=== PATIENT | female | born 1965 | race Caucasian/White ===

== ENCOUNTER → 2020-11-06 | Outpatient (CLI) | payer BC ==
[~2020-11-06] MED LIST: GADOBENATE DIMEGLUMINE 1 ML IV ONE; SODIUM CHLORIDE 0.9% 50ML 50 ML ONE
== END ==
LOC: MRI 09:23
PROVIDERS: ATTEND Internal Medicine Critical Care Medicine
DX: G47.411 Narcolepsy with cataplexy (principal); G47.19 Other hypersomnia; G47.419 Narcolepsy without cataplexy; G47.33 Obstructive sleep apnea (adult) (pediatric); G47.63 Sleep related bruxism; R44.3 Hallucinations, unspecified; D49.7 Neoplasm of unspecified behavior of endocrine glands and other parts of nervous system
CPT/HCPCS: 70553

== ENCOUNTER → 2021-01-18 | Outpatient (CLI) | payer BC | LOC: SLEEP 19:43 | PROVIDERS: ATTEND Internal Medicine Critical Care Medicine | DX: G47.411 Narcolepsy with cataplexy (principal); G47.19 Other hypersomnia; G47.33 Obstructive sleep apnea (adult) (pediatric); G47.63 Sleep related bruxism; R44.3 Hallucinations, unspecified | CPT/HCPCS: 95811 ==

== ENCOUNTER → 2021-01-19 | Outpatient (CLI) | payer BC | LOC: SLEEP 04:48 | PROVIDERS: ATTEND Internal Medicine Critical Care Medicine | DX: G47.33 Obstructive sleep apnea (adult) (pediatric) (principal); G47.411 Narcolepsy with cataplexy; G47.19 Other hypersomnia; G47.419 Narcolepsy without cataplexy; G47.63 Sleep related bruxism; R44.3 Hallucinations, unspecified | CPT/HCPCS: 95805 ==